=== PATIENT | male | born 1960 | race Caucasian/White ===

== ENCOUNTER 2019-01-28 09:13 | Emergency (ER) | payer SELFPAY ==
[~2019-01-28] VITALS: Ht 180.3 cm; Wt 89.6 kg
--- NOTE | 2019-01-28 09:36 | NUR ---
Pt states that he attempted MOM last night which resulted in a small BM this morning. Denies use of Magnesium Citrate, or enema.
[2019-01-28] MEDS ORDERED: POLY119P2 PO (09:46)
[2019-01-28] MEDS ORDERED: MAGN296S50 PO (09:46)
[2019-01-28] MEDS ORDERED: BISA-155 PO (09:46)
[2019-01-28 09:49] LABS: BASOPHILS # (AUTO) 0.1 X10'3 (0-0.2); BASOPHILS % (AUTO) 1.6 % (0-1); EOSINOPHILS # (AUTO) 0.1 X10'3 (0-0.9); EOSINOPHILS % (AUTO) 1.4 % (0-6); HEMATOCRIT 45.3 % (42.0-52.0); LYMPHOCYTES # (AUTO) 2.6 X10'3 (1.1-4.8); LYMPHOCYTES % (AUTO) 35.2 % (21-51); MEAN CORPUSCULAR HEMOGLOBIN 33.5 PG (27.0-31.0); MEAN CORPUSCULAR HGB CONC 35.3 g/dL (33.0-36.5); MEAN CORPUSCULAR VOLUME 94.7 FL (78-98); MEAN PLATELET VOLUME 7.4 FL (7.4-10.4); MONOCYTES # (AUTO) 0.5 X10'3 (0-0.9); NEUTROPHILS % (AUTO) 54.8 % (42-75); PLATELET COUNT 248 X10'3 (140-440); RED BLOOD COUNT 4.78 X10'6 (4.70-6.10); RED CELL DISTRIBUTION WIDTH 13.4 % (11.5-14.5); WHITE BLOOD COUNT 7.4 X10'3 (4.5-11.0)
[2019-01-28 10:05] LABS: ALANINE AMINOTRANSFERASE 28 U/L (12-78); ALBUMIN 4.1 G/DL (3.4-5.0); ALBUMIN/GLOBULIN RATIO 1.2 (1.1-1.5); ALKALINE PHOSPHATASE 39 IU/L (46-116); ANION GAP 6 (8-16); ASPARTATE AMINO TRANSFERASE 21 U/L (10-37); BILIRUBIN,TOTAL 0.4 MG/DL (0.1-1.0); BLOOD UREA NITROGEN 10 MG/DL (7-18); BUN/CREATININE RATIO 8.3 (5.4-32.0); CALCIUM 9.3 MG/DL (8.5-10.1); CHLORIDE 104 MMOL/L (99-107); GLUCOSE 99 MG/DL (70-104); POTASSIUM 4.7 MMOL/L (3.5-5.1); SODIUM 139 MMOL/L (135-145); TOTAL CARBON DIOXIDE 28.9 MMOL/L (24-32); TOTAL PROTEIN 7.6 G/DL (6.4-8.2); eGFR 62 ML/MIN
[2019-01-28 10:22] LABS: LIPASE 107 U/L (73-393)
[2019-01-28 10:27] VITALS: BP 142/78
--- NOTE | 2019-01-28 10:27 | NUR ---
OK PER DR BRUNSON TO DC PT WITHOUT UA.
[2019-01-29] MEDS ORDERED: LACT10SO PO (10:48)
== END 2019-01-28 10:29 | disposition home or self-care (01) ==
LOC: ER 09:14
DX: K59.00 Constipation, unspecified (principal); Z79.899 Other long term (current) drug therapy
CPT/HCPCS: 36415; 80053; 83690; 85025; 85610; 99283

== ENCOUNTER 2019-01-29 09:11 | Emergency (ER) | payer SELFPAY ==
[~2019-01-29] VITALS: Ht 180.3 cm; Wt 97.0 kg
[~2019-01-29 09:11] MED LIST: BISA-155 PO; MAGN296S50 PO; POLY119P2 PO
[2019-01-29 09:32] VITALS: BP 181/92
--- NOTE | 2019-01-29 10:00 | NUR ---
PT TO CT
[2019-01-29] MEDS ORDERED: LACT10SO PO (10:48)
[2019-01-31 09:45] LABS: OCCULT BLOOD STOOL NEGATIVE (Neg)
== END 2019-01-29 10:44 | disposition home or self-care (01) ==
LOC: ER 09:12
DX: K59.00 Constipation, unspecified (principal); Z79.899 Other long term (current) drug therapy; Z98.890 Other specified postprocedural states
CPT/HCPCS: 74176; 82272; 99284

== ENCOUNTER 2019-12-07 06:07 | Emergency (ER) | payer SELFPAY ==
[~2019-12-07] VITALS: Ht 182.9 cm; Wt 91.4 kg
[~2019-12-07 06:07] MED LIST changes: +LACT10SO PO; -MAGN296S50 PO; +MAGN296S70 PO
[2019-12-07 06:58] VITALS: BP 145/97
== END 2019-12-07 06:53 | disposition home or self-care (01) ==
LOC: ER 06:07
DX: S40.022A Contusion of left upper arm, initial encounter (principal); Z98.890 Other specified postprocedural states; Z72.89 Other problems related to lifestyle; Z79.899 Other long term (current) drug therapy; W06.XXXA Fall from bed, initial encounter; Y93.89 Activity, other specified; Y92.89 Other specified places as the place of occurrence of the external cause; Y99.8 Other external cause status
CPT/HCPCS: 29125; 73090; 73110; 99284